=== PATIENT | female | born 1950 | race Caucasian/White ===

== ENCOUNTER 2018-09-26 15:37 | Emergency (ER) | payer MEDICARE, OTHER ==
[~2018-09-26] VITALS: Wt 100.0 kg
[~2018-09-26 15:37] MED LIST: ACET-141 G-TUBE; AMIN30LI G-TUBE; ASCO500S2 GTB; CARB1TAB18 GTB; CEPH-443 PO; DOCU50LI23 GTB; FAMO20TA18 G-TUBE; GABA250S2 G-TUBE; LANT3I SC; METF-849 G-TUBE; METO-53 GTB; MULT9LIQ2 G-TUBE; NOV SC; SENN-120 G-TUBE
[2018-09-26] MEDS ORDERED: ALBUTEROL 0.083% (NEB) 2.5 MG/3 ML AMP INH STA (16:25)
--- NOTE | 2018-09-26 16:34 | ERD ---
ER Documentation Chief Complaint Chief Complaint BIBA from [facility]: c/o desat to 86% at [facility] HPI This is a 67-year-old bed ridden nonverbal noncommunicative female sent by detention for low oxygen saturations of 86% on room air. The patient has severe Parkinson's disease and is DNR. There is no other history given such as cough vomiting fever etc. The patient cannot communicate have no other way to get a history. Her O2 sats on room air here are 97% ROS All systems reviewed and are negative except as per history of present illness. Medications Home Meds Reported Medications Albuterol Sulfate* (Albuterol Sulfate* Neb) 0.083%-3 Ml Neb, 2.5 MG NEB Q4H PRN for WHEEZING AND SOB, #30 VIAL 09/26/18 Acetaminophen* (Acetaminophen* Susp) 325 Mg/10.15 Ml Solution, 650 MG GTB Q4 PRN for PAIN OR TEMP ABOVE 38C, ML 09/26/18 Magnesium Hydroxide* (Milk Of Magnesia*) 400 Mg/5 Ml Oral.susp, 30 ML GTB Q24H PRN for CONSTIPATION, ML 09/26/18 Metoprolol Tartrate* (Lopressor*) 25 Mg Tablet, 75 MG GTB BID, #180 TAB HOLD FOR SBP<110 OR NJ<60 09/26/18 Levetiracetam* (Keppra*) 500 Mg Tablet, 500 MG GTB BID, TAB 09/26/18 Ipratropium-Albuterol (Ipratropium-Albuterol) 0.5-3 Mg/3 Ml Ampul.neb, 3 ML INHALATION Q6 PRN for WHEEZING AND SOB, #30 VIAL 09/26/18 Glucagon,Human Recombinant (Glucagen) 1 Mg Vial, 1 MG IJ DAILY PRN for LOW GLUCOSE, VIAL 09/26/18 Famotidine* (Famotidine*) 20 Mg Tablet, 20 MG GTB BID, #30 TAB 09/26/18 Cran/Vitc/Mannose/Inulin/Brom (Uti-Stat Liquid) 3,875 Mg/30 Ml Liquid, 3875 MG GTB BID 09/26/18 Amino Acids/Protein Hydrolys (PRO-STAT LIQUID) 30 Ml Liquid.pkt, 30 ML GTB BID 09/26/18 Carbidopa/Levodopa (Carbidopa-Levodopa 25-100 Tab) 1 Each Tablet, 1 TAB PO TID 09/26/18 Insulin Detemir (Levemir) 100 Unit/1 Ml Vial, 40 UNITS SUBCUTANE QHS 09/26/18 Cholecalciferol* (Vitamin D3*) 1,000 Unit Tablet, 2000 UNIT GTB Q8, TAB 09/26/18 Pantoprazole* (Protonix*) 40 Mg Tablet.dr, 40 MG PO AC BREAKFAST, TAB 09/26/18 Clopidogrel Bisulfate (Clopidogrel) 75 Mg Tablet, 75 MG GTB DAILY, #30 TAB 09/26/18 Insulin Aspart* (Novolog Insulin Pen*) 100 Unit/Ml Soln, 0-10 UNITS SC Q6, EA 09/26/18 Ascorbic Acid* (Vitamin C* Liq) 500 Mg/5 Ml Syrup, 500 MG GTB BID, ML 10/21/15 Multivitamin/Minerals* (Multivitamin w/Min* Liq) 9 Mg/15 Ml Liquid, 15 ML G-TUBE DAILY, ML 10/21/15 Docusate Sodium* (Docusate Sodium* Liq) 50 Mg/5 Ml Liquid, 100 MG GTB DAILY, ML HOLD FOR LOOSE STOOL 10/21/15 Discontinued Reported Medications Acetaminophen* (Acetaminophen*) 500 MG Extra Strength Tablet, 1000 MG G-TUBE Q12 PRN for PAIN AND OR ELEVATED TEMP, TAB 10/21/15 Insulin Glargine* (Lantus*) 100 Unit/Ml Soln, 8 UNIT SC QHS, VIAL 10/21/15 Amino Acids/Protein Hydrolys (PRO-STAT LIQUID) 30 Ml Liquid.pkt, 30 ML G-TUBE DAILY 10/21/15 Metformin* (Glucophage*) 500 Mg Tab, 500 MG G-TUBE DAILY, TAB 10/21/15 Famotidine* (Famotidine*) 20 Mg Tablet, 20 MG G-TUBE BID, TAB 10/21/15 Sennosides* (Senna Lax*) 8.6 Mg Tablet, 2 TAB G-TUBE QHS, TAB 10/21/15 Gabapentin* (Gabapentin* Liq) 250 Mg/5 Ml Solution, 300 MG G-TUBE Q8, ML 10/21/15 Insulin Aspart* (Novolog Insulin Vial*) 100 U/Ml Vial, 0 SC SLIDING SCALE AC, VIAL 10/21/15 Metoprolol (Lopressor) 50 Mg Tablet, 50 MG GTB BID 08/13/11 Carbidopa/Levodopa (Carbidopa-Levo 10-100 Tab) 1 Udtab Tablet, 1 UDTAB GTB TID 08/13/11 Discontinued Scripts Cephalexin* (Keflex*) 500 Mg Capsule, 500 MG PO TID for 7 Days, CAP Prov:MARINE ALVARADO MD 10/21/15 Allergies Allergies: Uncoded Allergies: LEATHER (Allergy, Unknown, 08/13/11) PMhx/Soc History of Surgery: Yes (G-TUBE INSERTION) Hx Neurological Disorder: Yes (MULTIPLE SCLEROSIS) Hx Respiratory Disorders: No Hx Cardiac Disorders: Yes (HTN) Hx Psychiatric Problems: No Hx Miscellaneous Medical Probl: Yes (DM, PARKINSONS, MS, GERD, IDIOPATHIC NEUROPATHY) Hx Alcohol Use: No Hx Substance Use: No Hx Tobacco Use: No Smoking Status: Unknown if ever smoked FmHx Unable to obtain due to mental status Physical Exam Vitals Vital Signs Date Temp Pulse Resp B/P (MAP) Pulse Ox O2 O2 Flow FiO2 Time Delivery Rate 09/26/18 101 18 98 Simple 6.0 17:15 Mask 09/26/18 Simple 2 17:13 Mask 09/26/18 97 20 144/65 100 Mask 8.0 17:05 (91) 09/26/18 99.4 82 20 157/75 99 16:05 (102) Physical Exam Const: Well-developed, well-nourished Head: Atraumatic, normocephalic Eyes: Normal Conjunctiva, PERRLA, EOMI, normal sclera, no nystagmus ENT: Normal External Ears, Nose and Mouth, moist mucus membranes. Neck: Full range of motion. No meningismus, no lymphadenopathy. Resp: No increased work of breathing with some scant bibasilar rhonchi with good air movement Cardio: Regular rate and rhythm, no murmurs, S1 S2 present Abd: Soft, non tender x 4, non distended. Normal bowel sounds, no guarding or rebound, no pulsitile abdominal masses or bruits Skin: No petechiae or rashes, no ecchymosis , no maculopapular rash Back: No midline or flank tenderness Ext: No cyanosis, or edema, FROM x4 passive, normal inspection, right upper extremity resting tremor with contractures neurovascularly intact x 4 Neur: Awake and alert, sensation intact x 4, Psych: [Unable to assess nonverbal Result Diagram: 09/26/18 1704 09/26/18 1704 Results 24 hrs Laboratory Tests Test 09/26/18 17:04 White Blood Count 11.3 10^3/ul Red Blood Count 4.71 10^6/ul Hemoglobin 12.2 g/dl Hematocrit 39.2 % Mean Corpuscular Volume 83.2 fl Mean Corpuscular Hemoglobin 25.9 pg Mean Corpuscular Hemoglobin Concent 31.1 g/dl Red Cell Distribution Width 15.5 % Platelet Count 413 10^3/UL Mean Platelet Volume 11.1 fl Immature Granulocytes % 0.400 % Neutrophils % 62.4 % Lymphocytes % 25.6 % Monocytes % 8.6 % Eosinophils % 2.6 % Basophils % 0.4 % Nucleated Red Blood Cells % 0.0 /100WBC Immature Granulocytes # 0.040 10^3/ul Neutrophils # 7.1 10^3/ul Lymphocytes # 2.9 10^3/ul Monocytes # 1.0 10^3/ul Eosinophils # 0.3 10^3/ul Basophils # 0.0 10^3/ul Nucleated Red Blood Cells # 0.0 10^3/ul Sodium Level 143 mmol/L Potassium Level 4.5 mmol/L Chloride Level 99 mmol/L Carbon Dioxide Level 31 mmol/L Anion Gap 13 Blood Urea Nitrogen 38 mg/dl Creatinine 0.58 mg/dl Est Glomerular Filtrat Rate mL/min > 60 mL/min Glucose Level 134 mg/dl Calcium Level 9.7 mg/dl Total Bilirubin 0.2 mg/dl Direct Bilirubin 0.00 mg/dl Indirect Bilirubin 0.2 mg/dl Aspartate Amino Transf (AST/SGOT) 22 IU/L Alanine Aminotransferase (ALT/SGPT) 9 IU/L Alkaline Phosphatase 94 IU/L Troponin I < 0.012 ng/ml B-Type Natriuretic Peptide 444 PG/ML Total Protein 8.5 g/dl Albumin 4.1 g/dl Globulin 4.40 g/dl Albumin/Globulin Ratio 0.93 Current Medications Medications Dose Sig/Sarath Start Time Status Last (Trade) Ordered Route PRN Stop Time Admin Dose Reason Admin Albuterol 5 mg ONCE STAT 09/26/18 DC 09/26/18 (Proventil INH 16:25 09/26/18 17:15 0.083% (Neb)) 16:27 Procedures/MDM Ordering MD: GIRISH JACK DO Location: E/R Room/Bed: PROCEDURE: XR Chest. CLINICAL INDICATION: Shortness of breath TECHNIQUE: Frontal chest x-ray was obtained. COMPARISON: Chest x-ray January 06, 2013 FINDINGS: The heart is not enlarged. Mediastinum is not widened. No hilar masses seen. Lungs are clear of any infiltrates. There are fine linear markings in both lungs compatible with fibrosis. There is no effusion or pneumothorax. The osseous structures appear normal. IMPRESSION: No alveolar infiltrate or mass. Fine linear lung markings - rule out fibrosis. .Rickie Judd MD, MD Date Time Electronically viewed and signed by .Rickie Judd MD, MD on 09/26/2018 17:20 .A/ CC: GIRISH JACK DO [id number] Patient's labs are unremarkable as is the chest x-ray. Patient was giving a breathing treatment. After this she was observed for several hours and she is maintained room air oxygen saturation of 96%. Going to discharge her back to the [facility] unit as I feel her O2 sats were erroneously recorded low at 86% Repeat lung exam is normal Departure Diagnosis: Primary Impression: Reactive airway disease Asthma severity: mild Asthma persistence: unspecified Qualified Codes: J45.909 - Unspecified asthma, uncomplicated Additional Impression: Parkinsons disease Condition: Stable GIRISH JACK DO Sep 26, 2018 16:34
[2018-09-26] MEDS ORDERED: NOVO3I SC (17:18)
[2018-09-26] MEDS ORDERED: CLOP75TA27 GTB (17:19)
[2018-09-26] MEDS ORDERED: PANT40TA3 PO (17:20)
[2018-09-26] MEDS ORDERED: CHOL100062 GTB (17:20)
[2018-09-26] MEDS ORDERED: LEVEM SUBCUTANE (17:22)
[2018-09-26] MEDS ORDERED: AMIN30LI GTB (17:23)
[2018-09-26] MEDS ORDERED: CARB1TAB34 PO (17:23)
[2018-09-26] MEDS ORDERED: CRAN3875 GTB (17:24)
[2018-09-26] MEDS ORDERED: FAMO20TA18 GTB (17:25)
[2018-09-26] MEDS ORDERED: IPRA3AMP29 INHALATION (17:26)
[2018-09-26] MEDS ORDERED: GLUC1KIT2 IJ (17:26)
[2018-09-26] MEDS ORDERED: LEVE-5 GTB (17:27)
[2018-09-26] MEDS ORDERED: METO25TA4 GTB (17:28)
[2018-09-26] MEDS ORDERED: MAGN400O19 GTB (17:29)
[2018-09-26] MEDS ORDERED: ALBU2.5V3 NEB (17:30)
[2018-09-26] MEDS ORDERED: ACET325S GTB (17:30)
[2018-09-26 22:30] VITALS: BP 104/55; PULSE 99; RESP 20
== END 2018-09-26 22:30 | disposition home or self-care (01) ==
LOC: E/R 15:37
DX: J45.901 Unspecified asthma with (acute) exacerbation (principal); G20 Parkinson's disease; E11.9 Type 2 diabetes mellitus without complications; Z79.01 Long term (current) use of anticoagulants; Z79.4 Long term (current) use of insulin
CPT/HCPCS: 36415; 71045; 80053; 83880; 84484; 85025; 94664